=== PATIENT | male | born 1945 | race Caucasian/White ===

== ENCOUNTER → 2019-03-22 | Outpatient (CLI) | payer OTHER ==
[~2019-03-22] VITALS: Ht 182.9 cm; Wt 65.8 kg
[~2019-03-22] MED LIST: ALPRAZOLAM 0.0.25 M1 PO; ASA81BEC PO; FLONASE 0.05%50 MCG NARES; LOSARTAN POTASS50 MG PO; PRESERVISION A1 EACH PO; SLOW-MAG64 M1 PO
--- NOTE | 2019-03-23 17:07 | PATH ---
[facility] [place] [address] PATHOLOGY RPT PROCEDURE Name: ISABELL ANGELES Room #: REG ONOFRE Jas.#: [id number] Admission: 03/22/19 Date of : 43 Discharge: Report #: [id number] Path Case #: [id number] [facility] Accession Number: [id number] . 01 Material submitted: . PART A: stomach - BX GASTRITIS PART B: esophagus - BX OF PLAQUE MID ESOPHAGUS AT 35CM. Modifiers: mid . 01 Clinical history: . Reflux gastritis, small hiatal hernia, esophageal plaque Rule out H. pylori . 02 Diagnosis: A. Gastric mucosa, gastritis to rule out H. pylori, endoscopic biopsy: - Moderate reactive gastropathy with focal interstitial metaplasia. - Negative for atrophy or dysplasia. - Negative for Helicobacter pylori (properly controlled immunohistochemical stain performed). . B. Squamous mucosa, plaque mid esophagus at 35 cm, endoscopic biopsy: - Hyperkeratotic squamous papilloma. - Negative for malignancy. . (IUV:training and development specialist; 03/23/2019) MBR 03/23/2019 1245 Local . 02 Electronically signed: . Nica Samayoa MD, Pathologist NPI- [id number] . 01 Gross description: . A. The specimen is received in formalin, labeled "Isabell Angeles, BX gastritis" and consists of 4 fragments of pink-cordero tissue measuring 1.0 x 0.6 x 0.2 cm in aggregate which are entirely submitted in A1. . B. The specimen is received in formalin, labeled "Isabell Angeles, BX of plaque esophagus at 35 cm" and consists of 2 fragments of pink-cordero tissue measuring 0.3 x 0.2 cm and 0.4 x 0.2 cm which are entirely submitted in B1. (SDY; 03/22/2019) SYU/SYU 03/23/2019 1242 Local . 02 Pathologist provided ICD-10: K31.9, D13.0 . 02 CPT . 345976, 303948, T64479 Specimen Comment: A courtesy copy of this report has been sent to [phone], [place] [address] PATHOLOGY RPT PROCEDURE Name: ISABELL ANGELES Room #: REG CLKim Bethea#: [id number] Admission: 03/22/19 Date of : 43 Discharge: Report #: [id number] Path Case #: [id number] Specimen Comment: [id number] Specimen Comment: Report sent to / DR BRYANT Performed at: [address], [place] [id number] MD Geovani Mccloud MD Phone: [phone] Performed at: [address] [id number] MD Nica Samayoa MD Phone: [phone]
--- NOTE | 2019-03-24 11:38 | P ---
[facility] [place] [address] PROCEDURE REPORT Name: ISABELL ANGELES Room #: REG ONOFRE Bethea#: [id number] Admission: 03/22/19 Attend Phys: Manjinder Marroquin Discharge: Date of : 43 Report #: [id number] THIS REPORT FOR: //name// CC: Manjinder Kelly [facility] physician/PCP Eyal Echeverria Jr., MD DATE OF SERVICE: 03/22/2019 PROCEDURE PERFORMED: Upper endoscopy with biopsies. HISTORY OF PRESENT ILLNESS: The patient is a 73-year-old male who was seen by myself on 01/17/2019 in the office for a history of possible reflux causing clearing of his throat and sinus issues. At one point, the patient was on Prilosec b.i.d. as well as domperidone, later switched to Protonix 40 mg, and then he wanted to decrease and discontinue the medication. He decreased this to 20 mg and then he has been off Protonix for the last 3 weeks. No previous history of upper endoscopy. He denies any dysphagia or odynophagia. He is not having heartburn symptoms at this time. Plan is for upper endoscopy. DESCRIPTION OF PROCEDURE: The risks and benefits of the procedure were explained to the patient, those risks including, but not limited to bleeding, perforation and the risk of sedation. He understood these risks and gave me informed consent. Sedation was given using propofol per anesthesia. Next, using a standard Olympus upper endoscope, the scope was placed in the patient's mouth and advanced under direct vision through the esophagus, stomach and into the second portion of the duodenum. The upper esophagus was normal. In the mid to distal esophagus, at 35 cm, a small white plaque was noted. Biopsies were obtained, otherwise normal. The GE junction was mildly jagged, but no evidence of Hood's or esophagitis was seen. Upon entering the stomach, a small hiatal hernia was noted. There was a mild gastritis noted in the body as well as the distal antrum. Biopsies were obtained. No evidence of ulcerations or erosions. The pylorus was normal and patent. The duodenal bulb, first and second portion were all normal. The scope was then withdrawn and the procedure terminated. The patient tolerated the procedure well. IMPRESSION: 1. Small plaque in the mid to distal esophagus. 2. Gastritis. 3. Otherwise, normal upper endoscopy. RECOMMENDATIONS: 1. Await biopsy results. 2. Continue to observe at this point. If the patient has increased symptoms, consider restarting PPI therapy at that point. [address] [address] PROCEDURE REPORT Name: ISABELL ANGELES Room #: REG [facility]#: [id number] Admission: 03/22/19 Attend Phys: Manjinder Marroquin Discharge: Date of : 43 Report #: [id number] Thank you for allowing me to participate in his care. <ELECTRONICALLY SIGNED> By: Manjinder Kelly MD 03/24/19 1138 0903 1039 Manjinder Kelly MD /nt
== END | disposition home or self-care (01) ==
LOC: GI 07:16
DX: D13.0 Benign neoplasm of esophagus (principal); K31.9 Disease of stomach and duodenum, unspecified; K29.70 Gastritis, unspecified, without bleeding; K44.9 Diaphragmatic hernia without obstruction or gangrene; I10 Essential (primary) hypertension; K21.9 Gastro-esophageal reflux disease without esophagitis; D64.9 Anemia, unspecified; Z98.890 Other specified postprocedural states; Z79.899 Other long term (current) drug therapy; Z98.41 Cataract extraction status, right eye; Z98.42 Cataract extraction status, left eye
CPT/HCPCS: 62110; 62900